=== PATIENT | male | born 1955 | race Caucasian/White ===

== ENCOUNTER 2019-10-11 09:08 | Day surgery (SDC) | payer OTHER ==
[2019-10-08 17:15] VITALS: BMI 27.3
[2019-10-11] MEDS ORDERED: PROPOFOL 20 ML ONE (10:45)
[2019-10-11] MEDS ORDERED: MIDAZOLAM HCL 2 MG/2 ML SINGLE DOSE VIAL ONE (10:45)
--- NOTE | 2019-10-11 11:24 | OP ---
Operative Note - Note: Operative Date: 10/11/19 Pre-Operative Diagnosis: Left renal stone Operation: Left ESWL Findings: 5 mm lower pole left renal stone Post-Operative Diagnosis: Same as Pre-op Surgeon: Sergey Alvarado Anesthesia: Fractional Estimated Blood Loss (mls): 0 Drains, Volume Out (mls): 0 Operative Report Dictated: Yes
[2019-10-11 11:39] VITALS: TEMP 98
[2019-10-11 12:43] VITALS: BP 122/79; PULSE 81
--- NOTE | 2019-10-11 20:30 | OP ---
DATE OF OPERATION: 10/11/2019 PREOPERATIVE DIAGNOSIS: Left renal stone. POSTOPERATIVE DIAGNOSIS: Left renal stone. PROCEDURE: Left extracorporeal shock wave lithotripsy. ATTENDING: Con Massey MD ANESTHESIA: Fractional. DESCRIPTION OF OPERATION: Patient was brought in the operating room, placed in supine position on the operating room table. Ultrasonography and fluoroscopy were performed. A 5-mm left lower pole stone was identified. At this point, preoperative antibiotics and anesthesia were administered. Shock wave lithotripsy was then started; 2500 impulses at 17 joules of power were administered to the stone with excellent fragmentation noted under real-time ultrasonography and fluoroscopy. No complications were noted. The disposition of the patient was to the recovery room. CON MASSEY M.D. [id number]
== END 2019-10-11 12:30 | disposition home or self-care (01) ==
LOC: JASU-SURG 09:08
PROVIDERS: ATTEND Urology
PROC: 0TF4XZZ Fragmentation in Left Kidney Pelvis, External Approach (ICD-10-PCS; principal; 2019-10-11 11:00)
DX: N20.0 Calculus of kidney (principal)

== ENCOUNTER 2021-09-24 04:21 | Day surgery (SDC) | payer OTHER ==
[2021-09-20 10:43] VITALS: BMI 26.6
[2021-09-24] MEDS ORDERED: MIDAZOLAM HCL 2 MG/2 ML SINGLE DOSE VIAL ONE (11:17)
[2021-09-24] MEDS ORDERED: PROPOFOL 20 ML ONE (11:17)
[2021-09-24 13:40] VITALS: BP 127/70; PULSE 80; TEMP 98
== END 2021-09-24 13:30 | disposition home or self-care (01) ==
LOC: JASU-SURG 04:21
PROVIDERS: ATTEND Urology
PROC: 0TF4XZZ Fragmentation in Left Kidney Pelvis, External Approach (ICD-10-PCS; principal; 2021-09-24 11:30)
DX: N20.0 Calculus of kidney (principal)

== ENCOUNTER 2023-08-12 04:14 | Day surgery (SDC) | payer OTHER ==
[2023-08-06 15:40] VITALS: BMI 26.6
[2023-08-12] MEDS ORDERED: MIDAZOLAM HCL 2 MG/2 ML SINGLE DOSE VIAL ONE (11:11)
[2023-08-12] MEDS ORDERED: ONDANSETRON 4 MG/2 ML VIAL ONE (11:15)
[2023-08-12] MEDS ORDERED: ACETAMINOPHEN 500 MG TABLET (FP) ONE (13:07)
[2023-08-12] MEDS ORDERED: ACETAMINOPHEN 500 MG TABLET (FP) PO ONE (13:45)
[2023-08-12 16:08] VITALS: BP 127/72; PULSE 60; RESP 18; TEMP 98
== END 2023-08-12 13:25 | disposition home or self-care (01) ==
LOC: JASU-SURG 04:14
PROVIDERS: ATTEND Urology
PROC: 0TF3XZZ Fragmentation in Right Kidney Pelvis, External Approach (ICD-10-PCS; principal; 2023-08-12 10:30)
DX: N20.0 Calculus of kidney (principal)